=== PATIENT | male | born 1980 | race Two or more races ===

== ENCOUNTER 2022-05-20 17:47 | Inpatient (IN) | payer OTHER ==
[~2022-05-20] VITALS: Ht 170.2 cm; Wt 65.0 kg
[2022-05-20 19:05] LABS: ANION GAP 9 mmol/L (8-16); CALCIUM, TOTAL 9.4 mg/dL (8.8-10.5); CARBON DIOXIDE 32 mmol/L (22-29); CHLORIDE 100 mmol/L (98-107); CREATININE 0.82 mg/dL (0.60-1.30); GLOMERULAR FILTR. RATE CALC > 60 mL/min (>60); GLUCOSE,RANDOM 108 mg/dL (70-110); POTASSIUM 4.1 mmol/L (3.5-5.1); SODIUM SERUM 141 mmol/L (136-145); UREA NITROGEN, BLOOD 16 mg/dL (7-18)
[2022-05-20 19:07] LABS: BASOPHILS % (AUTO) 0.4 % (0.0-2.0); EOSINOPHILS % (AUTO) 2.8 % (1.0-6.0); HEMOGLOBIN 15.1 g/dL (13.5-17.5); LYMPHOCYTES # (AUTO) 2.2 K/uL (1.0-4.8); LYMPHOCYTES % (AUTO) 29.1 % (22.0-44.0); MEAN CORPUSCULAR HEMOGLOBIN 31.1 pg (26.0-34.0); MEAN CORPUSCULAR HGB CONC 33.6 G/dL (31.0-37.0); MEAN CORPUSCULAR VOLUME 93 fL (80-100); MONOCYTES # (AUTO) 0.5 K/uL (0.1-1.0); NEUTROPHILS # (AUTO) 4.6 K/uL (1.8-7.7); NEUTROPHILS % (AUTO) 60.7 % (40.0-70.0); PLATELET COUNT (AUTO) 242 K/uL (150-450); RED BLOOD CELL COUNT(AUTO) 4.86 MIL/uL (4.50-5.90); RED CELL DISTRIBUTION WIDTH 12.8 % (11.5-14.5)
[2022-05-20 19:10] LABS: ALANINE AMINOTRANSFERASE 29 U/L (12-78); ALBUMIN 4.1 g/dL (3.4-5.0); ALKALINE PHOSPHATASE 72 U/L (46-116); ASPARTATE AMINOTRANSFERASE 22 U/L (15-37); BILIRUBIN,TOTAL 0.6 mg/dL (0.1-1.0); TOTAL PROTEIN, SERUM 7.7 g/dL (6.4-8.2)
[2022-05-20 19:15] LABS: C-REACTIVE PROTEIN QUANT < 0.05 mg/dL (0.00-0.30)
[2022-05-20] MEDS ORDERED: MAGNESIUM HYDROXIDE SUSPENSION 30 ML UDCUP PO PRN (21:15)
[2022-05-20] MEDS ORDERED: BISACODYL 10 MG RECTAL RECTAL SUPPOSITORY PR PRN (21:15)
[2022-05-20] MEDS ORDERED: HYDROCODONE/ACETAMINOPHEN 5-325 MG TABLET PO PRN (21:15)
[2022-05-20] MEDS ORDERED: ZOLPIDEM TARTRATE 5 MG TABLET PO PRN (21:15)
[2022-05-20] MEDS ORDERED: ACETAMINOPHEN 325 MG TABLET PO PRN ×2 (21:15)
[2022-05-20] MEDS ORDERED: MORPHINE SULFATE 2 MG/ML SYRINGE IVP PRN (21:15)
[2022-05-20] MEDS ORDERED: ONDANSETRON HCL 4 MG/2 ML VIAL IVP PRN ×2 (21:15)
[2022-05-20 22:07] LABS: COVID AG,FIA SOURCE NASOPHARYNGEAL
[2022-05-20 23:32] VITALS: BP 124/71
[2022-05-20] MEDS: HEPARIN SODIUM,PORCINE 5,000 UNITS/ML VIAL SQ SCH (23:41)
[2022-05-21] MEDS ORDERED: SODIUM CHLORIDE 3% 15 ML NEB SOLUTION NEB ONE (02:10)
[2022-05-21 05:04] VITALS: BP 122/73
[2022-05-21] MEDS: DOCUSATE SODIUM 100 MG CAPSULE PO SCH ×2 (08:13→20:00)
[2022-05-21] MEDS: PANTOPRAZOLE SODIUM 40 MG DR TABLET PO SCH (08:14)
[2022-05-21] MEDS: HEPARIN SODIUM,PORCINE 5,000 UNITS/ML VIAL SQ SCH ×3 (08:21→23:58)
[2022-05-21 08:24] VITALS: BP 123/79
[2022-05-21 15:35] VITALS: BP 128/82
[2022-05-21 20:00] VITALS: BP 113/60
[2022-05-22] MEDS ORDERED: SODIUM CHLORIDE 3% 15 ML NEB SOLUTION NEB ONE (00:25)
[2022-05-22] MEDS ORDERED: 0.9% SODIUM CHLORIDE 5 ML NEB SOLUTION NEB ONE (00:25)
[2022-05-22 04:40] VITALS: BP 103/58
[2022-05-22] MEDS: HEPARIN SODIUM,PORCINE 5,000 UNITS/ML VIAL SQ SCH ×2 (08:20→16:18)
[2022-05-22] MEDS: PANTOPRAZOLE SODIUM 40 MG DR TABLET PO SCH (08:20)
[2022-05-22] MEDS: DOCUSATE SODIUM 100 MG CAPSULE PO SCH (08:20)
[2022-05-22 08:42] VITALS: BP 127/76
[2022-05-22 16:02] VITALS: BP 112/70
[2022-05-22 20:35] VITALS: BP 125/64
[2022-05-23] MEDS: HEPARIN SODIUM,PORCINE 5,000 UNITS/ML VIAL SQ SCH ×3 (00:05→16:03)
[2022-05-23] MEDS: DOCUSATE SODIUM 100 MG CAPSULE PO SCH ×3 (00:06→22:29)
[2022-05-23 05:05] VITALS: BP 105/58
[2022-05-23 07:31] VITALS: BP 118/74
[2022-05-23] MEDS: PANTOPRAZOLE SODIUM 40 MG DR TABLET PO SCH (08:37)
[2022-05-23 15:42] VITALS: BP 114/79
[2022-05-23 20:45] VITALS: BP 124/65
[2022-05-24] MEDS: HEPARIN SODIUM,PORCINE 5,000 UNITS/ML VIAL SQ SCH ×4 (00:16→23:36)
[2022-05-24 05:34] VITALS: BP 114/69
[2022-05-24 08:06] LABS: HIV 1-2 SCREEN 4TH GEN W/RFLX Non Reactive (Non Reactive)
[2022-05-24] MEDS: PANTOPRAZOLE SODIUM 40 MG DR TABLET PO SCH (08:13)
[2022-05-24 08:17] VITALS: BP 111/67
[2022-05-24] MEDS: DOCUSATE SODIUM 100 MG CAPSULE PO SCH ×3 (09:00→20:23)
[2022-05-24 15:34] VITALS: BP 100/71
[2022-05-24 20:20] VITALS: BP 113/62
[2022-05-25 04:35] VITALS: BP 106/54
[2022-05-25 07:21] VITALS: BP 113/73
[2022-05-25] MEDS: HEPARIN SODIUM,PORCINE 5,000 UNITS/ML VIAL SQ SCH ×2 (08:58→16:57)
[2022-05-25] MEDS: PANTOPRAZOLE SODIUM 40 MG DR TABLET PO SCH (08:58)
[2022-05-25] MEDS: DOCUSATE SODIUM 100 MG CAPSULE PO SCH ×2 (08:58→20:02)
[2022-05-25 15:39] VITALS: BP 104/66
[2022-05-25 20:00] VITALS: BP 114/65
[2022-05-26] MEDS: HEPARIN SODIUM,PORCINE 5,000 UNITS/ML VIAL SQ SCH ×4 (00:01→23:49)
[2022-05-26 04:35] VITALS: BP 127/72
[2022-05-26 07:40] VITALS: BP 115/73
[2022-05-26] MEDS: DOCUSATE SODIUM 100 MG CAPSULE PO SCH ×2 (08:39→20:26)
[2022-05-26] MEDS: PANTOPRAZOLE SODIUM 40 MG DR TABLET PO SCH (08:39)
[2022-05-26 15:11] VITALS: BP 132/78
[2022-05-26 21:12] VITALS: BP 108/71
[2022-05-27 05:30] VITALS: BP 116/70
[2022-05-27 08:18] VITALS: BP 108/71
[2022-05-27] MEDS: HEPARIN SODIUM,PORCINE 5,000 UNITS/ML VIAL SQ SCH ×3 (08:20→23:28)
[2022-05-27] MEDS: PANTOPRAZOLE SODIUM 40 MG DR TABLET PO SCH (08:21)
[2022-05-27] MEDS: DOCUSATE SODIUM 100 MG CAPSULE PO SCH ×2 (08:21→20:28)
[2022-05-27 16:11] VITALS: BP 112/66
[2022-05-27 20:12] VITALS: BP 116/81
[2022-05-28 04:36] VITALS: BP 116/70
[2022-05-28 07:59] VITALS: BP 113/69
[2022-05-28] MEDS: DOCUSATE SODIUM 100 MG CAPSULE PO SCH ×2 (08:13→20:32)
[2022-05-28] MEDS: PANTOPRAZOLE SODIUM 40 MG DR TABLET PO SCH (08:13)
[2022-05-28] MEDS: HEPARIN SODIUM,PORCINE 5,000 UNITS/ML VIAL SQ SCH ×3 (08:13→23:29)
[2022-05-28 15:28] VITALS: BP 113/72
[2022-05-28 20:18] VITALS: BP 118/63
[2022-05-29 05:22] VITALS: BP 117/78
[2022-05-29 07:06] LABS: QUANTIFERON, TB GOLD PLUS Negative (Negative)
[2022-05-29 07:35] VITALS: BP 123/71
[2022-05-29] MEDS: HEPARIN SODIUM,PORCINE 5,000 UNITS/ML VIAL SQ SCH ×3 (09:04→23:49)
[2022-05-29] MEDS: DOCUSATE SODIUM 100 MG CAPSULE PO SCH ×2 (09:04→20:24)
[2022-05-29] MEDS: PANTOPRAZOLE SODIUM 40 MG DR TABLET PO SCH (09:04)
[2022-05-29 10:09] LABS: BASOPHILS % (AUTO) 0.7 % (0.0-2.0); EOSINOPHILS % (AUTO) 4.1 % (1.0-6.0); HEMATOCRIT 44.7 % (41-53); HEMOGLOBIN 15.3 g/dL (13.5-17.5); LYMPHOCYTES # (AUTO) 2.1 K/uL (1.0-4.8); LYMPHOCYTES % (AUTO) 29.7 % (22.0-44.0); MEAN CORPUSCULAR HEMOGLOBIN 31.7 pg (26.0-34.0); MEAN CORPUSCULAR HGB CONC 34.1 G/dL (31.0-37.0); MEAN CORPUSCULAR VOLUME 93 fL (80-100); MONOCYTES # (AUTO) 0.6 K/uL (0.1-1.0); MONOCYTES % (AUTO) 8.5 % (2.0-9.0); NEUTROPHILS # (AUTO) 4.1 K/uL (1.8-7.7); PLATELET COUNT (AUTO) 224 K/uL (150-450); RED BLOOD CELL COUNT(AUTO) 4.81 MIL/uL (4.50-5.90)
[2022-05-29 10:18] LABS: ANION GAP 4 mmol/L (8-16); CALCIUM, TOTAL 9.6 mg/dL (8.8-10.5); CARBON DIOXIDE 34 mmol/L (22-29); CHLORIDE 101 mmol/L (98-107); CREATININE 0.86 mg/dL (0.60-1.30); GLOMERULAR FILTR. RATE CALC > 60 mL/min (>60); GLUCOSE,RANDOM 85 mg/dL (70-110); POTASSIUM 4.1 mmol/L (3.5-5.1); SODIUM SERUM 139 mmol/L (136-145); UREA NITROGEN, BLOOD 17 mg/dL (7-18)
[2022-05-29 15:24] VITALS: BP 113/61
[2022-05-29 20:00] VITALS: BP 117/70
[2022-05-30 04:15] VITALS: BP 102/70
[2022-05-30 07:25] VITALS: BP 110/70
[2022-05-30] MEDS: HEPARIN SODIUM,PORCINE 5,000 UNITS/ML VIAL SQ SCH ×3 (08:07→23:29)
[2022-05-30] MEDS: PANTOPRAZOLE SODIUM 40 MG DR TABLET PO SCH (09:17)
[2022-05-30] MEDS: DOCUSATE SODIUM 100 MG CAPSULE PO SCH ×2 (09:17→21:41)
[2022-05-30 15:19] VITALS: BP 113/63
[2022-05-30 20:04] VITALS: BP 122/64
[2022-05-30 21:49] LABS: PROTHROMBIN TIME 10.3 SEC (9.4-11.6)
[2022-05-31 05:10] VITALS: BP 112/72
[2022-05-31] MEDS: HEPARIN SODIUM,PORCINE 5,000 UNITS/ML VIAL SQ SCH ×3 (08:00→23:31)
[2022-05-31 08:26] VITALS: BP 119/76
[2022-05-31] MEDS: DOCUSATE SODIUM 100 MG CAPSULE PO SCH ×2 (09:00→20:38)
[2022-05-31] MEDS: PANTOPRAZOLE SODIUM 40 MG DR TABLET PO SCH (09:00)
[2022-05-31] MEDS ORDERED: MIDAZOLAM HCL 2 MG/2 ML VIAL ONE ×2 (09:50→10:39)
[2022-05-31] MEDS ORDERED: FentaNYL CITRATE PF 100 MCG/2 ML VIAL ONE (09:50)
[2022-05-31 11:30] VITALS: BP 116/71
[2022-05-31 15:43] VITALS: BP 118/72
[2022-05-31] MEDS ORDERED: LIDOCAINE 4% 50 ML SOLUTION TP ONE (16:19)
[2022-05-31] MEDS ORDERED: ALBUTEROL SULFATE 2.5 MG/0.5 ML NEB SOLUTION NEB ONE (16:19)
[2022-05-31] MEDS ORDERED: LIDOCAINE 2% 11 ML JELLY TP ONE (16:19)
[2022-05-31] MEDS ORDERED: BENZOCAINE 20% 50 MCG/SPRAY 57 GM TP ONE (16:19)
[2022-05-31 20:48] VITALS: BP 112/69
[2022-06-01 04:20] VITALS: BP 104/72
[2022-06-01 08:14] VITALS: BP 108/60
[2022-06-01] MEDS: DOCUSATE SODIUM 100 MG CAPSULE PO SCH ×2 (08:24→19:37)
[2022-06-01] MEDS: PANTOPRAZOLE SODIUM 40 MG DR TABLET PO SCH (08:24)
[2022-06-01] MEDS: HEPARIN SODIUM,PORCINE 5,000 UNITS/ML VIAL SQ SCH ×3 (08:24→23:24)
[2022-06-01 16:23] VITALS: BP 101/74
[2022-06-01 20:05] VITALS: BP 115/68
[2022-06-02 04:12] VITALS: BP 108/61
[2022-06-02 07:32] VITALS: BP 116/76
[2022-06-02] MEDS: PANTOPRAZOLE SODIUM 40 MG DR TABLET PO SCH (09:25)
[2022-06-02] MEDS: DOCUSATE SODIUM 100 MG CAPSULE PO SCH ×2 (09:25→20:21)
[2022-06-02] MEDS: HEPARIN SODIUM,PORCINE 5,000 UNITS/ML VIAL SQ SCH ×3 (09:25→23:50)
[2022-06-02 15:31] VITALS: BP 109/63
[2022-06-02 19:35] VITALS: BP 125/77
[2022-06-03 04:10] VITALS: BP 105/68
[2022-06-03 07:54] VITALS: BP 108/70
[2022-06-03] MEDS: PANTOPRAZOLE SODIUM 40 MG DR TABLET PO SCH (08:27)
[2022-06-03] MEDS: HEPARIN SODIUM,PORCINE 5,000 UNITS/ML VIAL SQ SCH ×3 (08:27→23:32)
[2022-06-03] MEDS: DOCUSATE SODIUM 100 MG CAPSULE PO SCH ×2 (08:27→20:17)
[2022-06-03 16:20] VITALS: BP 110/62
[2022-06-03 20:05] VITALS: BP 116/66
[2022-06-04 04:32] VITALS: BP 104/67
[2022-06-04 07:56] VITALS: BP 113/68
[2022-06-04] MEDS: PANTOPRAZOLE SODIUM 40 MG DR TABLET PO SCH (08:18)
[2022-06-04] MEDS: HEPARIN SODIUM,PORCINE 5,000 UNITS/ML VIAL SQ SCH ×3 (08:18→23:37)
[2022-06-04] MEDS: DOCUSATE SODIUM 100 MG CAPSULE PO SCH ×2 (08:21→20:18)
[2022-06-04 15:41] VITALS: BP 112/66
[2022-06-04 19:37] VITALS: BP 110/66
[2022-06-05 04:26] VITALS: BP 108/65
[2022-06-05 07:33] VITALS: BP 114/71
[2022-06-05] MEDS: PANTOPRAZOLE SODIUM 40 MG DR TABLET PO SCH (08:55)
[2022-06-05] MEDS: HEPARIN SODIUM,PORCINE 5,000 UNITS/ML VIAL SQ SCH ×3 (08:55→23:55)
[2022-06-05] MEDS: DOCUSATE SODIUM 100 MG CAPSULE PO SCH ×2 (09:14→22:08)
[2022-06-05 16:48] VITALS: BP 108/74
[2022-06-05 19:45] VITALS: BP 113/70
[2022-06-06 05:30] VITALS: BP 107/69
[2022-06-06 07:41] VITALS: BP 114/76
[2022-06-06 08:00] LABS: BASOPHILS % (AUTO) 1.4 % (0.0-2.0); EOSINOPHILS % (AUTO) 6.2 % (1.0-6.0); HEMATOCRIT 43.2 % (41-53); HEMOGLOBIN 15.1 g/dL (13.5-17.5); LYMPHOCYTES # (AUTO) 2.4 K/uL (1.0-4.8); LYMPHOCYTES % (AUTO) 30.8 % (22.0-44.0); MEAN CORPUSCULAR HEMOGLOBIN 32.1 pg (26.0-34.0); MEAN CORPUSCULAR HGB CONC 34.9 G/dL (31.0-37.0); MEAN CORPUSCULAR VOLUME 92 fL (80-100); MONOCYTES # (AUTO) 0.7 K/uL (0.1-1.0); MONOCYTES % (AUTO) 9.2 % (2.0-9.0); NEUTROPHILS % (AUTO) 52.4 % (40.0-70.0); PLATELET COUNT (AUTO) 220 K/uL (150-450); RED BLOOD CELL COUNT(AUTO) 4.71 MIL/uL (4.50-5.90); RED CELL DISTRIBUTION WIDTH 13.2 % (11.5-14.5)
[2022-06-06 08:11] LABS: ALANINE AMINOTRANSFERASE 74 U/L (12-78); ALBUMIN 3.8 g/dL (3.4-5.0); ALKALINE PHOSPHATASE 69 U/L (46-116); ANION GAP 6 mmol/L (8-16); ASPARTATE AMINOTRANSFERASE 33 U/L (15-37); BILIRUBIN,TOTAL 0.6 mg/dL (0.1-1.0); CALCIUM, TOTAL 9.3 mg/dL (8.8-10.5); CARBON DIOXIDE 29 mmol/L (22-29); CHLORIDE 101 mmol/L (98-107); CREATININE 0.82 mg/dL (0.60-1.30); GLOMERULAR FILTR. RATE CALC > 60 mL/min (>60); GLUCOSE,RANDOM 98 mg/dL (70-110); POTASSIUM 4.3 mmol/L (3.5-5.1); SODIUM SERUM 136 mmol/L (136-145); TOTAL PROTEIN, SERUM 7.7 g/dL (6.4-8.2); UREA NITROGEN, BLOOD 18 mg/dL (7-18)
[2022-06-06] MEDS: DOCUSATE SODIUM 100 MG CAPSULE PO SCH ×2 (09:18→20:43)
[2022-06-06] MEDS: PANTOPRAZOLE SODIUM 40 MG DR TABLET PO SCH (09:18)
[2022-06-06] MEDS: HEPARIN SODIUM,PORCINE 5,000 UNITS/ML VIAL SQ SCH ×3 (09:19→23:20)
[2022-06-06 20:34] VITALS: BP 109/72
[2022-06-07 08:00] VITALS: BP 107/73
[2022-06-07] MEDS: PANTOPRAZOLE SODIUM 40 MG DR TABLET PO SCH (08:14)
[2022-06-07] MEDS: HEPARIN SODIUM,PORCINE 5,000 UNITS/ML VIAL SQ SCH ×3 (08:14→23:29)
[2022-06-07] MEDS: DOCUSATE SODIUM 100 MG CAPSULE PO SCH ×2 (08:14→20:15)
[2022-06-07] MEDS: ISONIAZID 300 MG TABLET PO SCH (16:16)
[2022-06-07] MEDS: RIFAMPIN 300 MG CAPSULE PO SCH (16:16)
[2022-06-07] MEDS: PYRIDOXINE HCL 50 MG TABLET PO SCH (16:16)
[2022-06-07] MEDS: PYRAZINAMIDE 500 MG TABLET PO SCH (16:17)
[2022-06-07] MEDS: ETHAMBUTOL HCL 400 MG TABLET PO SCH (16:17)
[2022-06-07 20:00] VITALS: BP 118/68
[2022-06-08 04:56] VITALS: BP 117/77
[2022-06-08 07:23] VITALS: BP 115/75
[2022-06-08] MEDS: ETHAMBUTOL HCL 400 MG TABLET PO SCH (08:43)
[2022-06-08] MEDS: PYRAZINAMIDE 500 MG TABLET PO SCH (08:43)
[2022-06-08] MEDS: RIFAMPIN 300 MG CAPSULE PO SCH (08:43)
[2022-06-08] MEDS: HEPARIN SODIUM,PORCINE 5,000 UNITS/ML VIAL SQ SCH ×3 (08:44→23:53)
[2022-06-08] MEDS: DOCUSATE SODIUM 100 MG CAPSULE PO SCH ×2 (08:44→21:00)
[2022-06-08] MEDS: PANTOPRAZOLE SODIUM 40 MG DR TABLET PO SCH (08:44)
[2022-06-08] MEDS: PYRIDOXINE HCL 50 MG TABLET PO SCH (08:44)
[2022-06-08] MEDS: ISONIAZID 300 MG TABLET PO SCH (08:44)
[2022-06-08 23:49] VITALS: BP 121/73
[2022-06-09 04:29] VITALS: BP 109/67
[2022-06-09 07:21] VITALS: BP_SYST 105; BP_SYST 121; BP_DIAS 53; BP_DIAS 72
[2022-06-09] MEDS: ISONIAZID 300 MG TABLET PO SCH (08:33)
[2022-06-09] MEDS: HEPARIN SODIUM,PORCINE 5,000 UNITS/ML VIAL SQ SCH ×2 (08:33→16:24)
[2022-06-09] MEDS: ETHAMBUTOL HCL 400 MG TABLET PO SCH (08:33)
[2022-06-09] MEDS: PYRAZINAMIDE 500 MG TABLET PO SCH (08:33)
[2022-06-09] MEDS: DOCUSATE SODIUM 100 MG CAPSULE PO SCH ×2 (08:34→21:00)
[2022-06-09] MEDS: PYRIDOXINE HCL 50 MG TABLET PO SCH (08:34)
[2022-06-09] MEDS: RIFAMPIN 300 MG CAPSULE PO SCH (08:34)
[2022-06-09] MEDS: PANTOPRAZOLE SODIUM 40 MG DR TABLET PO SCH (08:34)
[2022-06-09 15:43] VITALS: BP 112/64
[2022-06-09 20:31] VITALS: BP 109/64
[2022-06-10] MEDS: HEPARIN SODIUM,PORCINE 5,000 UNITS/ML VIAL SQ SCH ×3 (00:18→16:32)
[2022-06-10 04:35] VITALS: BP 121/74
[2022-06-10 08:20] VITALS: BP 116/72
[2022-06-10] MEDS: PANTOPRAZOLE SODIUM 40 MG DR TABLET PO SCH (08:23)
[2022-06-10] MEDS: PYRAZINAMIDE 500 MG TABLET PO SCH (08:23)
[2022-06-10] MEDS: DOCUSATE SODIUM 100 MG CAPSULE PO SCH ×2 (08:23→21:19)
[2022-06-10] MEDS: ISONIAZID 300 MG TABLET PO SCH (08:23)
[2022-06-10] MEDS: RIFAMPIN 300 MG CAPSULE PO SCH (08:23)
[2022-06-10] MEDS: ETHAMBUTOL HCL 400 MG TABLET PO SCH (08:23)
[2022-06-10] MEDS: PYRIDOXINE HCL 50 MG TABLET PO SCH (08:23)
[2022-06-10 19:50] VITALS: BP 108/70
[2022-06-11] MEDS: HEPARIN SODIUM,PORCINE 5,000 UNITS/ML VIAL SQ SCH ×3 (00:54→16:28)
[2022-06-11 05:34] LABS: BASOPHILS % (AUTO) 0.7 % (0.0-2.0); EOSINOPHILS % (AUTO) 5.8 % (1.0-6.0); HEMATOCRIT 40.7 % (41-53); HEMOGLOBIN 14.1 g/dL (13.5-17.5); LYMPHOCYTES # (AUTO) 2.4 K/uL (1.0-4.8); LYMPHOCYTES % (AUTO) 35.2 % (22.0-44.0); MEAN CORPUSCULAR HEMOGLOBIN 32.1 pg (26.0-34.0); MEAN CORPUSCULAR HGB CONC 34.7 G/dL (31.0-37.0); MEAN CORPUSCULAR VOLUME 93 fL (80-100); MONOCYTES # (AUTO) 0.6 K/uL (0.1-1.0); NEUTROPHILS # (AUTO) 3.5 K/uL (1.8-7.7); NEUTROPHILS % (AUTO) 50.3 % (40.0-70.0); PLATELET COUNT (AUTO) 224 K/uL (150-450); RED CELL DISTRIBUTION WIDTH 13.4 % (11.5-14.5)
[2022-06-11 05:50] LABS: ALANINE AMINOTRANSFERASE 24 U/L (12-78); ALBUMIN 3.7 g/dL (3.4-5.0); ALKALINE PHOSPHATASE 74 U/L (46-116); ANION GAP 4 mmol/L (8-16); ASPARTATE AMINOTRANSFERASE 27 U/L (15-37); BILIRUBIN,TOTAL 0.4 mg/dL (0.1-1.0); CALCIUM, TOTAL 9.3 mg/dL (8.8-10.5); CARBON DIOXIDE 32 mmol/L (22-29); CHLORIDE 102 mmol/L (98-107); CREATININE 0.89 mg/dL (0.60-1.30); GLOMERULAR FILTR. RATE CALC > 60 mL/min (>60); GLUCOSE,RANDOM 97 mg/dL (70-110); POTASSIUM 4.6 mmol/L (3.5-5.1); SODIUM SERUM 138 mmol/L (136-145); TOTAL PROTEIN, SERUM 7.4 g/dL (6.4-8.2); UREA NITROGEN, BLOOD 17 mg/dL (7-18)
[2022-06-11 08:14] VITALS: BP 112/68
[2022-06-11] MEDS: ETHAMBUTOL HCL 400 MG TABLET PO SCH (08:19)
[2022-06-11] MEDS: RIFAMPIN 300 MG CAPSULE PO SCH (08:19)
[2022-06-11] MEDS: PYRAZINAMIDE 500 MG TABLET PO SCH (08:19)
[2022-06-11] MEDS: PYRIDOXINE HCL 50 MG TABLET PO SCH (08:19)
[2022-06-11] MEDS: ISONIAZID 300 MG TABLET PO SCH (08:19)
[2022-06-11] MEDS: DOCUSATE SODIUM 100 MG CAPSULE PO SCH ×2 (08:20→20:21)
[2022-06-11] MEDS: PANTOPRAZOLE SODIUM 40 MG DR TABLET PO SCH (08:20)
[2022-06-11 20:21] VITALS: BP 121/68
[2022-06-12] MEDS: HEPARIN SODIUM,PORCINE 5,000 UNITS/ML VIAL SQ SCH ×4 (00:32→23:36)
[2022-06-12 07:49] VITALS: BP 107/62
[2022-06-12] MEDS: ISONIAZID 300 MG TABLET PO SCH (08:03)
[2022-06-12] MEDS: PYRAZINAMIDE 500 MG TABLET PO SCH (08:03)
[2022-06-12] MEDS: ETHAMBUTOL HCL 400 MG TABLET PO SCH (08:03)
[2022-06-12] MEDS: PYRIDOXINE HCL 50 MG TABLET PO SCH (08:03)
[2022-06-12] MEDS: PANTOPRAZOLE SODIUM 40 MG DR TABLET PO SCH (08:03)
[2022-06-12] MEDS: DOCUSATE SODIUM 100 MG CAPSULE PO SCH ×2 (08:03→20:00)
[2022-06-12] MEDS: RIFAMPIN 300 MG CAPSULE PO SCH (08:05)
[2022-06-12 19:31] VITALS: BP 119/67
[2022-06-13 08:03] VITALS: BP 126/57
[2022-06-13] MEDS: PYRAZINAMIDE 500 MG TABLET PO SCH (08:28)
[2022-06-13] MEDS: ISONIAZID 300 MG TABLET PO SCH (08:29)
[2022-06-13] MEDS: HEPARIN SODIUM,PORCINE 5,000 UNITS/ML VIAL SQ SCH (08:29)
[2022-06-13] MEDS: DOCUSATE SODIUM 100 MG CAPSULE PO SCH (08:29)
[2022-06-13] MEDS: RIFAMPIN 300 MG CAPSULE PO SCH (08:29)
[2022-06-13] MEDS: ETHAMBUTOL HCL 400 MG TABLET PO SCH (08:29)
[2022-06-13] MEDS: PYRIDOXINE HCL 50 MG TABLET PO SCH (08:38)
[2022-06-13] MEDS: PANTOPRAZOLE SODIUM 40 MG DR TABLET PO SCH (08:38)
[2022-06-13] MEDS ORDERED: DOCU-385 PO (13:47)
[2022-06-13] MEDS ORDERED: ETHA100 PO (13:48)
[2022-06-13] MEDS ORDERED: ISON100T34 PO (13:49)
[2022-06-13] MEDS ORDERED: PYRA500T33 PO (13:50)
[2022-06-13] MEDS ORDERED: PANT-31 PO (13:50)
[2022-06-13] MEDS ORDERED: PYRI-6 PO (13:51)
[2022-06-13] MEDS ORDERED: RIFA300C36 PO (13:52)
[2022-06-13] MEDS ORDERED: ACET-2247 PO (13:53)
== END 2022-06-13 15:41 | DRG 179 ==
LOC: EMS 17:51 → 6S 21:24
PROVIDERS: ADMIT Internal Medicine; ATTEND Internal Medicine
PROC: 0BDC8ZX Extraction of Right Upper Lung Lobe, Via Natural or Artificial Opening Endoscopic, Diagnostic (ICD-10-PCS; 2022-05-31)
PROC: 0B9C8ZX Drainage of Right Upper Lung Lobe, Via Natural or Artificial Opening Endoscopic, Diagnostic (ICD-10-PCS; principal; 2022-05-31 10:05)
DX: A15.0 Tuberculosis of lung (principal); D86.9 Sarcoidosis, unspecified; Z20.822 Contact with and (suspected) exposure to COVID-19
CPT/HCPCS: 31622; 31623; 31624; 71045; 71250; 80048; 80053; 83516; 85025; 85610; 86038; 86140; 86225; 86403; 86480; 86635; 87015; 87070; 87081; 87101; 87116; 87206; 87220; 87389; 87556; 88112; 94640; 99285; J1644; J2250; J3010; Q9967; 36415-L1; 36415-TC; J7613; Z7610